=== PATIENT | female | born 1965 | race Two or more races ===

== ENCOUNTER 2021-08-30 08:17 | Day surgery (SDC) | payer MEDICAID ==
[~2021-08-30 08:17] MED LIST: Lactated Ringers 1,000 ML IV SCH
[2021-08-30] MEDS ORDERED: Propofol 200 MG/20 ML SDV ONE ×2 (08:42→10:42)
[2021-08-30] MEDS ORDERED: Lidocaine 1% 5 ML VIAL ONE (08:42)
[2021-08-30] MEDS ORDERED: fentaNYL 100 MCG/2 ML SDV ONE (08:42)
[2021-08-30] MEDS ORDERED: Acetaminophen/oxyCODONE 325-5 MG Tab PO ONE (11:38)
== END 2021-08-30 11:30 | disposition home or self-care (01) ==
LOC: MW.SDS 08:17
PROVIDERS: ATTEND Surgery
DX: R19.5 Other fecal abnormalities (principal); R19.4 Change in bowel habit; K64.8 Other hemorrhoids; E66.9 Obesity, unspecified; J44.9 Chronic obstructive pulmonary disease, unspecified; F41.9 Anxiety disorder, unspecified; F31.9 Bipolar disorder, unspecified; J45.909 Unspecified asthma, uncomplicated; Z68.27 Body mass index [BMI] 27.0-27.9, adult; Z98.890 Other specified postprocedural states; Z90.49 Acquired absence of other specified parts of digestive tract; Z79.01 Long term (current) use of anticoagulants; Z79.52 Long term (current) use of systemic steroids; Z79.899 Other long term (current) drug therapy; Z86.718 Personal history of other venous thrombosis and embolism
CPT/HCPCS: 45378; J2370; J2704; J3010; J7120

== ENCOUNTER 2021-10-15 09:27 | Emergency (ER) | payer MEDICAID ==
[2021-10-15] MEDS ORDERED: Ondansetron 4 MG/2 ML SDV IVPUSH ONE (10:13)
[2021-10-15] MEDS ORDERED: Sodium Chloride 0.9% 1,000 ML IV ONE (10:13)
[2021-10-15] MEDS ORDERED: Morphine 2 MG/ML SYRINGE IVPUSH ONE (10:14)
[2021-10-15 11:29] LABS: BLOOD UREA NITROGEN,BUN 12 mg/dL (7.0-18.0); CARBON DIOXIDE,CO2 24.3 mmol/L (21.0-32.0); CHLORIDE,CL 104 mmol/L (98-107); GLUCOSE RANDOM 91 mg/dL (74-106); POTASSIUM,K 4.5 mmol/L (3.5-5.1); SODIUM,NA 140 mmol/L (136-145)
[2021-10-15] MEDS ORDERED: Iopamidol 755 MG/ML 500 ML Multipack Bottle IVPUSH ONE (18:43)
== END 2021-10-15 13:14 | disposition home or self-care (01) ==
LOC: MW.ED 09:27
DX: R10.84 Generalized abdominal pain (principal); J45.909 Unspecified asthma, uncomplicated; F17.210 Nicotine dependence, cigarettes, uncomplicated; Z90.49 Acquired absence of other specified parts of digestive tract; Z79.899 Other long term (current) drug therapy; Z79.01 Long term (current) use of anticoagulants; Z79.82 Long term (current) use of aspirin
CPT/HCPCS: 36415; 74177; 80053; 81003; 83605; 85025; 87040; 96374; 96375; 99284; J2270; J2405; J7030; Q9967

== ENCOUNTER 2023-02-11 07:21 | Day surgery (SDC) | payer MEDICAID ==
[2023-02-11] MEDS ORDERED: Dexmedetomidine 200 MCG/2 ML SDV IV ONE (07:22)
[2023-02-11] MEDS ORDERED: propofoL 50 ML ONE (10:03)
[2023-02-11] MEDS ORDERED: Lidocaine 2% 5 ML SDV ONE (10:03)
[2023-02-11] MEDS ORDERED: Propofol 200 MG/20 ML SDV ONE ×5 (10:21→11:10)
[2023-02-11] MEDS ORDERED: Lactated Ringers 1,000 ML IV SCH (11:30)
== END 2023-02-11 11:53 | disposition home or self-care (01) ==
LOC: MW.SDS 07:21
PROVIDERS: ATTEND Surgery
DX: K20.90 Esophagitis, unspecified without bleeding (principal); Q43.8 Other specified congenital malformations of intestine; D50.9 Iron deficiency anemia, unspecified; J44.1 Chronic obstructive pulmonary disease with (acute) exacerbation; E55.9 Vitamin D deficiency, unspecified; R13.10 Dysphagia, unspecified; F41.0 Panic disorder [episodic paroxysmal anxiety]; F31.9 Bipolar disorder, unspecified; E66.9 Obesity, unspecified; R73.03 Prediabetes; Z79.899 Other long term (current) drug therapy; Z90.49 Acquired absence of other specified parts of digestive tract; Z98.890 Other specified postprocedural states; Z98.84 Bariatric surgery status; Z72.89 Other problems related to lifestyle; Z79.82 Long term (current) use of aspirin; Z79.01 Long term (current) use of anticoagulants; Z93.4 Other artificial openings of gastrointestinal tract status; Z68.31 Body mass index [BMI] 31.0-31.9, adult; Z87.891 Personal history of nicotine dependence
CPT/HCPCS: 43239; 45378; J2704; J7120; 00731; J3490